=== PATIENT | female | born 1980 | race Caucasian/White ===

== ENCOUNTER 2018-04-01 16:58 | Emergency (ER) | payer MEDICAID ==
[~2018-04-01] VITALS: Ht 180.3 cm; Wt 125.9 kg
[2018-04-01 17:12] VITALS: BP 127/75
[2018-04-01] MEDS ORDERED: LIDOCAINE 1%-EPI 1:100K, 20ML ONE (17:26)
[2018-04-01] MEDS ORDERED: LIDOCAINE 1%-EPI 1:100K, 20ML SQ ONE (17:30)
== END 2018-04-01 17:48 | disposition home or self-care (01) ==
LOC: ED 17:35
DX: L02.415 Cutaneous abscess of right lower limb (principal); I10 Essential (primary) hypertension; F17.200 Nicotine dependence, unspecified, uncomplicated
CPT/HCPCS: 10060; 99283